=== PATIENT | female | born 2000 | race Caucasian/White ===

== ENCOUNTER → 2021-09-12 17:03 | Outpatient (CLI) | payer BC, SELFPAY ==
--- NOTE | 2021-09-12 17:17 | CT_ITS ---
EXAM: CT MAXILLOFACIAL SINUSES WITHOUT INTRAVENOUS CONTRAST CLINICAL INDICATION: Parosmia TECHNIQUE: Helically acquired images were obtained of the maxillofacial sinuses without intravenous contrast. This CT exam was performed using one or more of the following dose reduction techniques: automated exposure control, adjustment of the mA and/or kV according to patient size, and/or use of iterative reconstruction technique. This report was created using [employer] report [employer] technology. COMPARISON: None. FINDINGS: MAXILLARY SINUSES: Left maxillary sinus disease. Ostiomeatal complexes are normally formed. SPHENOID SINUSES: Clear. FRONTAL SINUSES: Clear. ETHMOID AIR CELLS: Clear. NASAL CAVITY/SEPTUM: Nasal septum is midline. Nasal turbinates are unremarkable. BONES/JOINTS: Anterior cranial fossa is unremarkable. ORBITS: Unremarkable. DENTAL: Unremarkable as visualized. No periodontal osseous erosion. CT/Sinus/Facial Bone IMPRESSION: Left maxillary sinus disease. Electronically Signed: Harvey Pantoja MD at 21:21 EST , Service support ,
== END ==
PROVIDERS: PCP Family Medicine; Visit Provider Otolaryngology
DX: R43.1 Parosmia (principal)
CPT/HCPCS: 70486

== ENCOUNTER 2023-01-17 10:20 | Emergency (ER) | payer BC, SELFPAY ==
[2023-01-17 10:21] VITALS: BP 120/74; PULSE 61; RESP 18; TEMP 36.1; O2SAT 100; BMI 19.8
--- NOTE | 2023-01-17 10:37 | EKG12_ITS ---
Test Reason : Blood Pressure : / mmHG Vent. Rate : 056 BPM Atrial Rate : 056 BPM P-R Int : 188 ms QRS Dur : 098 ms QT Int : 472 ms P-R-T Axes : 066 050 036 degrees QTc Int : 455 ms Sinus bradycardia with sinus arrhythmia Otherwise normal ECG Confirmed by MERCED MACE, FLYNN ([id number]), index editor JENIFER GRACIA ([id number]) on 01/18/2023 11:23:53 AM Referred By: ZHANE Confirmed By:FLYNN BLACKWOOD MD
--- NOTE | 2023-01-17 10:38 | EX.ED.DYSGE1 ---
HPI <KAYY uQreshi - Last Filed: 01/17/23 11:43> History of Present Illness Chief Complaint: Syncope Narrative Narrative: Patient presenting today after syncopal episode that occurred this morning while she was at [employer]. She was walking to the bathroom and began to feel hot, her vision became tunneled, and then she passed out. She did hit her face on the back wall as she was falling. The fall was unwitnessed and she is unsure if there was any seizure-like activity. She states that this has happened to her multiple times and usually occurs every few years. She states the same thing happens to her sisters and to her dad. She has never been evaluated for this. She denies any head pain, chest pain, shortness of breath, fever, recent illness, abdominal pain, nausea, and vomiting. She denies a PMH of any chronic health conditions. PFSH <KAYY Qureshi - Last Filed: 01/17/23 11:43> PFSH Medical History no medical history Allergy/AdvReac Type Severity Reaction Status Date / Time No Known Allergies Allergy Verified 01/17/23 10:22 Social History Smoking Status: Never smoker ROS <KAYY Qureshi - Last Filed: 01/17/23 11:43> ROS ED Constitutional Constitutional ED: Denies chills or fever(s) Eyes Eyes: Denies blurry vision or diplopia Cardiovascular Cardiovascular: Denies chest pain or palpitations Respiratory/Chest Respiratory/Chest: Denies cough or dyspnea Gastrointestinal Gastrointestinal: Denies abdominal pain, nausea or vomiting Genitourinary Genitourinary ED: Denies dysuria, hematuria or urinary urgency Musculoskeletal Musculoskeletal: Denies arthralgias, back pain, myalgias or neck pain Integumentary Denies abscess, Abrasions or rash Neurologic Neurologic: Denies confusion, dizziness, headache(s) or weakness Psychiatric Psychiatric: Denies anxiety, depression, suicidal ideation or suicidal thoughts EXAM <KAYY Qureshi - Last Filed: 01/17/23 11:43> Physical Exam Const Vital Signs: 01/17/23 10:21 01/17/23 10:25 01/17/23 11:11 Temperature 97 F L Temperature Source Temporal Pulse Rate 61 59 L Respiratory Rate 18 13 Respiratory Pattern Normal Blood Pressure 120/74 116/64 Blood Pressure Mean 89 Pulse Ox 100 100 Oxygen Delivery Method Room Air Positive well nourished, well developed and no apparent distress General Appearance ED: well developed HEENT Reports normocephalic and head/scalp atraumatic HEENT Narrative: area of ecchymosis to the bridge of patient's nose without any septal deviation, laceration, or epistaxis. Mouth ED: Yes moist mucous membranes normal Eyes PERRL and EOMs intact bilaterally Neck full ROM and supple Chest Wall inspection of chest normal Resp normal respiratory effort and clear to auscultation bilaterally Cardio regular rate and regular rhythm GI soft to palpation, non-tender, non-distended and no masses Back/Spine normal ROM and normal to inspection Extremity normal to inspection and full ROM Neuro oriented x3, CN's II-XII intact bilaterally, moves all extremities, no focal motor deficits and no sensory deficits noted Sensorium / Orientation: awake and alert Motor Exam: strength 5/5 throughout Psych mental status grossly normal and thought process normal Skin no rashes or lesions noted and no wounds <Dr. Jostin Miles MD - Last Filed: 01/17/23 11:08> Physical Exam Const Vital Signs: 01/17/23 10:21 01/17/23 10:25 01/17/23 11:11 Temperature 97 F L Temperature Source Temporal Pulse Rate 61 59 L Respiratory Rate 18 13 Respiratory Pattern Normal Blood Pressure 120/74 116/64 Blood Pressure Mean 89 Pulse Ox 100 100 Oxygen Delivery Method Room Air [facility] <KAYY Qureshi - Last Filed: 01/17/23 11:43> [facility] Narrative Medical decision making narrative: Patient presenting after syncopal episode that occurred this morning in [employer]. This does sound vasovagal in nature and has happened to patient multiple times in the past. She did hit her face on a brick wall as she fell, there is an area of ecchymosis to the bridge of patient's nose without any septal deviation or epistaxis. She is not complaining of any pain to her head or neck, chest pain, abdominal pain, or shortness of breath. Labs will be obtained to rule out leukocytosis, anemia, electrolyte abnormality. Labs are unremarkable. Patient well-appearing and in no acute distress. She will be discharged home in stable condition and is comfortable with plan. Encouraged her to follow-up with her PCP, especially if these episodes become more frequent. I have personally performed a face to face assessment of the patient and have reviewed the LAURIE Note. I performed a substantive portion of the visit including all aspects of the following. My alexander findings include: History is [healthy 22-year-old female had a syncopal today in [employer]. She has had multiple episodes of this over the last 5+ years. No history of any cardiac disease. No history of seizures. She did fall and hit her face against the wall today. Denies headache or neck pain. Denies any other complaints. No recent illness. Similar to prior episodes.] Exam is [well-appearing 22-year-old female. Vital signs are stable afebrile. Pulse ox 100% on room air no hypoxia. H EENT exam minor trauma to the bridge of her nose. Mild swelling. No deformity. No bleeding. Pupils round reactive to light. Small contusion right forehead. No laceration. Neck nontender full range of motion. Lungs are clear. Heart regular rate and rhythm rate about 60 no murmur. Chest wall nontender. Abdomen soft nontender. Back nontender. Moving all 4 extremities. Neurovascular intact. Normal motor strength. Normal range of motion. Nontender no deformity. Neurologic exam normal. NIH is 0. GCS of 15.] Medical Decision Making [Young female history of syncope suspect vasovagal syncope. EKG CBC and chemistries are normal. She has been doing well here. She will be discharged home outpatient follow-up. I did instruct her and her family that if these are becoming more frequent or if it would occur while she is driving she would need further evaluation.] Other additions or changes: [None] Lab Data Labs: Laboratory Results - last 24 hr 01/17/23 01/17/23 10:35 10:35 WBC 4.0 L RBC 4.16 L Hgb 12.5 Hct 39.1 MCV 94.0 MCH 30.0 MCHC 32.0 RDW Std Deviation 44.3 H RDW Coeff of Jake 12.8 Plt Count 249 MPV 9.4 Immature Gran % (Auto) 0.000 Neut % (Auto) 41.9 L Lymph % (Auto) 46.0 H Hubbard % (Auto) 9.3 Eos % (Auto) 2.0 Baso % (Auto) 0.8 Absolute Neuts (auto) 1.7 L Absolute Lymphs (auto) 1.84 Nucleated RBC % 0 Sodium 137 Potassium 3.5 Chloride 104 Carbon Dioxide 25.0 Anion Gap 8 BUN 10 Creatinine 0.93 Estim Creat Clear Calc 88.33 Est GFR (MDRD) Af Amer 96 Est GFR (MDRD) Non-Af 79 BUN/Creatinine Ratio 10.7 Glucose 118 H Calcium 9.2 EKG Initial EKG: Comments: 56 bpm, sinus bradycardia, no ST elevation, reviewed and interpreted by attending ED physician. <Dr. Jostin Miles MD - Last Filed: 01/17/23 11:08> [facility] Narrative Medical decision making narrative: Patient presenting after syncopal episode that occurred this morning in [employer]. This does sound vasovagal in nature and has happened to patient multiple times in the past. She did hit her face on a brick wall as she fell, there is an area of ecchymosis to the bridge of patient's nose without any septal deviation or epistaxis. She is not complaining of any pain to her head or neck, chest pain, abdominal pain, shortness of breath. Labs will be obtained to rule out leukocytosis, anemia, electrolyte abnormality. I have personally performed a face to face assessment of the patient and have reviewed the LAURIE Note. I performed a substantive portion of the visit including all aspects of the following. My alexander findings include: History is [healthy 22-year-old female had a syncopal today in [employer]. She has had multiple episodes of this over the last 5+ years. No history of any cardiac disease. No history of seizures. She did fall and hit her face against the wall today. Denies headache or neck pain. Denies any other complaints. No recent illness. Similar to prior episodes.] Exam is [well-appearing 22-year-old female. Vital signs are stable afebrile. Pulse ox 100% on room air no hypoxia. H EENT exam minor trauma to the bridge of her nose. Mild swelling. No deformity. No bleeding. Pupils round reactive to light. Small contusion right forehead. No laceration. Neck nontender full range of motion. Lungs are clear. Heart regular rate and rhythm rate about 60 no murmur. Chest wall nontender. Abdomen soft nontender. Back nontender. Moving all 4 extremities. Neurovascular intact. Normal motor strength. Normal range of motion. Nontender no deformity. Neurologic exam normal. NIH is 0. GCS of 15.] Medical Decision Making [Young female history of syncope suspect vasovagal syncope. EKG CBC and chemistries are normal. She has been doing well here. She will be discharged home outpatient follow-up. I did instruct her and her family that if these are becoming more frequent or if it would occur while she is driving she would need further evaluation.] Other additions or changes: [None] History & Record Review Discussion w/independent historian: Patient and Family Lab Data Attestation: I reviewed the patient's lab results. Lab results narrative: CBC normal. BMP normal. Labs: Laboratory Results - last 24 hr 01/17/23 01/17/23 10:35 10:35 WBC 4.0 L RBC 4.16 L Hgb 12.5 Hct 39.1 MCV 94.0 MCH 30.0 MCHC 32.0 RDW Std Deviation 44.3 H RDW Coeff of Jake 12.8 Plt Count 249 MPV 9.4 Immature Gran % (Auto) 0.000 Neut % (Auto) 41.9 L Lymph % (Auto) 46.0 H Hubbard % (Auto) 9.3 Eos % (Auto) 2.0 Baso % (Auto) 0.8 Absolute Neuts (auto) 1.7 L Absolute Lymphs (auto) 1.84 Nucleated RBC % 0 Sodium 137 Potassium 3.5 Chloride 104 Carbon Dioxide 25.0 Anion Gap 8 BUN 10 Creatinine 0.93 Estim Creat Clear Calc 88.33 Est GFR (MDRD) Af Amer 96 Est GFR (MDRD) Non-Af 79 BUN/Creatinine Ratio 10.7 Glucose 118 H Calcium 9.2 Rhythm Strip Rhythm Strip: Sinus Rhythm Rate: 56 Ectopy: None EKG Initial EKG: Attestation: I personally reviewed and interpreted this EKG as follows: Interpretation: Sinus Rhythm, No Acute Injury Pattern and Sinus Bradycardia Discharge Plan Triage Chief Complaint: Syncope ED Midlevel Provider: Samantha Rayo ED Provider: Jostin Miles Dx/Rx/DC Orders Clinical Impression: Vasovagal syncope, Contusion of nose Instructions: ED Facial Contusion, ED Fainting, Vagal Reaction Primary Care Provider: Christopher Holley Referrals: Christopher Holley MD [Primary Care Provider] - 5-7 Days Activity Restrictions/Additional Instructions: Please follow-up with your PCP and return for any worsening of symptoms. Disposition Disposition: Home, Self Care Discharge Date/Time: 01/17/23 11:31
[2023-01-17 10:45] LABS: Absolute Lymphocyte Count 1.84 X10^3/uL (0.83-4.51); Absolute Neutrophil Count 1.7 X10^3/uL (2.0-7.7); Basophil# 0.03 X10^3/uL; Basophil% 0.8 % (0-1); Eosinophil# 0.08 X10^3/uL; Hematocrit 39.1 % (37-47); Hemoglobin 12.5 g/dL (12.0-15.0); Lymphocyte # 1.84 X10^3/ul (0.83-4.51); Mean Platelet Vol. 9.4 fl (6.2-12.0); Monocyte# 0.37 X10^3/uL; Monocyte% 9.3 % (0-10); NRBC Flagged by Analyzer 0 % (0-5); Neutrophil # 1.68 X10^3/uL (2.7-7.7); Neutrophil % 41.9 % (47-70); Platelet Count 249 K/mm3 (150-450); RBC Distribution Width CV 12.8 % (11.6-14.6); RBC Distribution Width SD 44.3 fl (35.1-43.9); Red Blood Count 4.16 M/mm3 (4.2-5.4)
[2023-01-17 10:58] LABS: Anion Gap 8 (5-15); BUN 10 mg/dL (7-18); BUN/Creat Ratio 10.7 RATIO (10-20); Calcium,Total 9.2 mg/dL (8.5-10.1); Chloride 104 mmol/L (98-107); Creatinine, Serum 0.93 mg/dL (0.55-1.02); EST Glomerular Filtration Rate 79 mL/min (>60); Est Glom Filt Rate - Afr Amer 96 mL/min (>60); Estimated Creatinine Clearance 88.33 ml/min; Glucose 118 mg/dL (74-106); Potassium 3.5 mmol/L (3.5-5.1); Sodium Level 137 mmol/L (136-145)
[2023-01-17 11:11] VITALS: BP 116/64; PULSE 59; RESP 13; O2SAT 100
[2023-01-17 11:42] LABS: Internal QC Validated? YES +Cl - CLEAR BKGD; Pregnancy, Serum, hCG Quali. NEGATIVE Negative
== END 2023-01-17 11:31 | disposition home or self-care (01) ==
PROVIDERS: Physician Assistant; Emergency Provider Emergency Medicine; PCP Family Medicine; Visit Provider Emergency Medicine
DX: R55 Syncope and collapse (principal); S00.33XA Contusion of nose, initial encounter; W19.XXXA Unspecified fall, initial encounter
CPT/HCPCS: 80048; 84703; 85025; 93005; 99283; J7050; A4216

== ENCOUNTER → 2023-01-20 | Outpatient (CLI) | payer BC, SELFPAY ==
--- NOTE | 2023-01-20 11:10 | RAD_ITS ---
INDICATION: status post fall; bridge of nose bruising. check for fracture EXAMINATION/TECHNIQUE: X-RAY - XR Nasal Bones Min 3 Views COMPARISON: None. FINDINGS: SOFT TISSUES: No soft tissue swelling or gas. No radiopaque foreign body. BONES/TMJs: No fracture or subluxation. No sclerotic or destructive changes observed. RAD/Nasal Bones min 3 Views IMPRESSION: Negative. Electronically Signed: Prosper Baird DO at 23:45 EDT ,
[2023-01-20 12:39] LABS: Hematocrit 39.2 % (37-47); Hemoglobin 12.6 g/dL (12.0-15.0); Mean Corp Hgb Conc 32.1 g/dL (32-36); Mean Corpuscular Hgb 30.4 pg (27.0-32.0); Mean Corpuscular Volume 94.7 fL (81-99); Mean Platelet Vol. 9.9 fl (6.2-12.0); Platelet Count 276 K/mm3 (150-450); RBC Distribution Width CV 12.9 % (11.6-14.6); RBC Distribution Width SD 44.3 fl (35.1-43.9); Red Blood Count 4.14 M/mm3 (4.2-5.4); White Blood Count 5.3 K/mm3 (4.4-11.0)
[2023-01-20 13:28] LABS: Vitamin B12 505 pg/mL (211-911)
[2023-01-20 13:58] LABS: Anion Gap 3 (5-15); BUN 11 mg/dL (7-18); BUN/Creat Ratio 14.6 RATIO (10-20); Calcium,Total 9.4 mg/dL (8.5-10.1); Chloride 108 mmol/L (98-107); Creatinine, Serum 0.76 mg/dL (0.55-1.02); EST Glomerular Filtration Rate 101 mL/min (>60); Est Glom Filt Rate - Afr Amer 122 mL/min (>60); Glucose 85 mg/dL (74-106); Potassium 4.2 mmol/L (3.5-5.1); Sodium Level 137 mmol/L (136-145); Thyroid Stim Hormone (TSH) 0.67 uIU/mL (0.358-3.74)
== END | disposition home or self-care (01) ==
LOC: MTLAB 11:09
PROVIDERS: PCP Family Medicine; Referring Provider Nurse Practitioner Family; Visit Provider Nurse Practitioner Family
DX: R55 Syncope and collapse (principal); J34.89 Other specified disorders of nose and nasal sinuses
CPT/HCPCS: 36415; 70160; 80048; 82306; 82607; 84443; 85027

== ENCOUNTER → 2023-03-11 | Outpatient (CLI) | payer BC, SELFPAY ==
[2023-03-11 15:17] LABS: Absolute Lymphocyte Count 2.01 X10^3/uL (0.83-4.51); Absolute Neutrophil Count 2.5 X10^3/uL (2.0-7.7); Basophil# 0.03 X10^3/uL; Basophil% 0.6 % (0-1); Eosinophil# 0.22 X10^3/uL; Eosinophils% 4.2 % (0-5); Hematocrit 36.7 % (37-47); Hemoglobin 11.6 g/dL (12.0-15.0); Lymphocyte # 2.01 X10^3/ul (0.83-4.51); Lymphocyte % 38.7 % (19-41); Mean Corp Hgb Conc 31.6 g/dL (32-36); Mean Corpuscular Hgb 30.6 pg (27.0-32.0); Mean Corpuscular Volume 96.8 fL (81-99); Mean Platelet Vol. 10.4 fl (6.2-12.0); Monocyte# 0.48 X10^3/uL; Monocyte% 9.2 % (0-10); NRBC Flagged by Analyzer 0 % (0-5); Neutrophil # 2.45 X10^3/uL (2.7-7.7); Neutrophil % 47.1 % (47-70); Platelet Count 243 K/mm3 (150-450); RBC Distribution Width CV 13.2 % (11.6-14.6); RBC Distribution Width SD 47.2 fl (35.1-43.9); Red Blood Count 3.79 M/mm3 (4.2-5.4); White Blood Count 5.2 K/mm3 (4.4-11.0)
== END | disposition home or self-care (01) ==
LOC: MFPLAB 12:27
PROVIDERS: Nurse Practitioner Family; PCP Family Medicine; Visit Provider Family Medicine
DX: D72.819 Decreased white blood cell count, unspecified (principal)
CPT/HCPCS: 36415; 85025